=== PATIENT | male | born 1965 | race Hispanic/Latino ===

== ENCOUNTER 2022-07-17 22:32 | Emergency (ER) | payer SELFPAY ==
[~2022-07-17] VITALS: Ht 170.2 cm; Wt 95.0 kg
[2022-07-17 22:48] VITALS: BP 137/79
[2022-07-17 23:01] VITALS: BP 130/78
[2022-07-17 23:03] VITALS: BP 130/78
== END 2022-07-17 23:20 | disposition home or self-care (01) | DRG 605 ==
LOC: ED 22:32
DX: S91.331A Puncture wound without foreign body, right foot, initial encounter (principal); W22.8XXA Striking against or struck by other objects, initial encounter